=== PATIENT | male | born 1950 | race Caucasian/White ===

== ENCOUNTER → 2017-12-15 | Day surgery (SDC) | payer OTHER, BC ==
[2017-12-12 15:05] VITALS: Ht 177.8 cm; Wt 113.6 kg
[~2017-12-15] VITALS: Ht 177.8 cm; Wt 113.6 kg
[~2017-12-15] MED LIST: ASPCH81X PO; CHOL100010 PO; EFF75 PO; GLIP-197 PO; LEVO50TA6 PO; LIDOCAINE HCL 2% 2 ML VIAL (20MG/ML) ONE; LOSA50TA6 PO; METF1000 PO; PRLD25 PO; PROPOFOL IV EMULSION 10 MG/ML 20 ML VIAL ONE; SIMV10TA5 PO; SODIUM CHLORIDE 0.9% 500ML 500 ML IV ONE
--- NOTE | 2017-12-15 09:42 | Endo History and Physical ---
History & Physical Date of Service: December 15, 2017. Chief Complaint: history of polyps Referring Physician: Dr. Brown Gomez History of Present Illness h/o polyps; mother with colon cancer Past Surgical History Hx Cardiac Surgery: No Hx Internal Defibrillator: No Hx Pacemaker: No Hx Abdominal Surgery: No Hx of Implantable Prosthesis: No Hx Post-Op Nausea and Vomiting: No Hx Cancer Surgery: No Hx Thoracic Surgery: No Hx Orthopedic: No Hx Urinary Tract Surgery: No Family History Colon CA, Esophogeal CA Social History Smoking Status: Current Every Day Smoker Hx Substance Use: No Hx Alcohol Use: Yes (RARELY) Allergies Coded Allergies: Donepezil (Verified Allergy, Unknown, CAN'T REMEMBER, 12/12/17) Current Medications Reported Home Medications Medications Dose Route/Sig Max Daily Dose Days Date Category Vitamin D (Cholecalciferol) 1,000 Unit Tab 1 Tab PO QAM 12/12/17 Reported Effexor (Venlafaxine Hcl) 75 Mg Tab 75 Mg PO QAM 12/12/17 Reported Zocor (Simvastatin) 10 Mg Tab 10 Mg PO QPM 12/12/17 Reported Glucophage (Metformin Hcl) 1,000 Mg Tab 1,000 Mg PO BID 12/12/17 Reported Cozaar (Losartan Potassium) 50 Mg Tab 50 Mg PO QPM 12/12/17 Reported Levothyroxine Sodium 50 Mcg Tab 1 Tab PO QAM 12/12/17 Reported Glipizide Er (Glipizide) 5 Mg Tab 1 Tab PO QAM 12/12/17 Reported Bromocriptine Mesylate 2.5 Mg Tab 1 Tab PO QAM 12/12/17 Reported Aspirin Chewable (Aspirin) 81 Mg Chew 81 Mg PO DAILY 12/12/17 Reported Vital Signs Weight (Kilograms): 113.64 Height (Feet): 5 Height (Inches): 10 Date Time Temp Pulse Resp B/P (MAP) Pulse Ox O2 Delivery O2 Flow Rate FiO2 12/15/17 09:25 36.7 72 20 132/77 (95) 94 Room Air Physical Exam General Appearance: WD/WN, no apparent distress Assessment and Plan colonoscopy today
--- NOTE | 2017-12-15 10:33 | Anesthesiology Progress Note ---
Anesthesia Post Op Note Date & Time December 15, 2017 at 10:33 Vital Signs Pain Intensity: 0 Vital Signs Past 12 Hours Date Time Temp Pulse Resp B/P (MAP) Pulse Ox O2 Delivery O2 Flow Rate FiO2 12/15/17 10:18 79 18 129/78 (95) 94 Room Air 12/15/17 09:25 36.7 72 20 132/77 (95) 94 Room Air Notes Mental Status: alert / awake / arousable, participated in evaluation Pt Amnestic to Procedure: Yes Nausea / Vomiting: adequately controlled Pain: adequately controlled Airway Patency, RR, SpO2: stable & adequate BP & HR: stable & adequate Hydration State: stable & adequate Anesthetic Complications: no major complications apparent
[2017-12-15 10:48] VITALS: BP 142/80; PULSE 65; O2SAT 94
--- NOTE | 2017-12-15 10:48 | Discharge Instructions ---
Endoscopy Patient Instructions Date / Procedure(s) Performed December 15, 2017. Colonoscopy Allergy Information Coded Allergies: Donepezil (Verified Allergy, Unknown, CAN'T REMEMBER, 12/12/17) Discharge Date / Findings December 15, 2017. polyps Medication Instructions Stopped Medication(s): took ASA yesterday Restart Stopped Medication(s): Resume aspirin in 1 week as above Provider Instructions Activity Restrictions - No exercising or heavy lifting for 24 hours. - Do not drink alcohol the day of the procedure. - Do not drive a car or operate machinery until the day after the procedure. - Do not make any important decisions or sign important papers in 24 hours after the procedure. Following Day: - Return to full activity which may include returning to work/school. Diet Start your diet with liquids and light foods (jello, soup, juice, toast). Then eat your usual diet if not nauseated. Treatment For Common After Affects For mild abdominal pain, bloating, or excessive gas: - Rest - Eat lightly - Lie on right side Follow-Up Information Follow-up with Dr. Brown Gomez as scheduled Anesthesia Information What You Should Know You have had a procedure that required some medicine to reduce anxiety and discomfort. This treatment is called moderate sedation. After receiving the treatment, you may be sleepy, but you will be able to breathe on your own. The effects of the treatment may last for several hours. Follow these instructions along with Activity/Diet recommendations noted above: * Do NOT do anything where dizziness or clumsiness would be dangerous. * Rest quietly at home today, then you can be up and about tomorrow. * Have a responsible person stay with you the rest of today. * You may have had an I.V. today. If so, you may take the dressing off later today. Recommendations Call your doctor if: * Trouble breathing * Continuous vomiting for more than 24 hours * Temperature above 101 degrees * Severe abdominal pain or bloating * Pain not relieved by pain medicine ordered * There is increased drainage or redness from any incision * A large amount of rectal bleeding greater than 2-3 tablespoons. (If you had a polyp/s removed or have hemorrhoids, a small amount of blood - from the rectum is to be expected.) * You have any unanswered questions or concerns. IN THE EVENT OF A SERIOUS EMERGENCY, GO TO THE NEAREST EMERGENCY ROOM Your discharge instructions were prepared by provider Vi Mcrae. Patient Instructions Signature Page Primitivo Fajardo Patient (or Guardian) Signature/Date: I have read and understand the instructions given to me by my caregivers. Caregiver/RN/Doctor Signature/Date: The above-named patient and/or guardian has received patient instructions on this date. + Original Patient Signature Page (only) stays with chart. Please make copy for patient.
--- NOTE | 2017-12-15 15:46 | GI REPORT ---
Patient Name: Primitivo Fajardo Procedure Date: 12/15/2017 9:32 AM Date of : 1950 Admit Type: Outpatient Age: 67 Gender: Male Attending MD: Vi Mcrae DO Procedure: Colonoscopy Providers: Vi Mcrae DO Referring MD: Brown Gomez Indications: Surveillance: Personal history of adenomatous polyps on last colonoscopy > 5 years ago, Family history of colon cancer in mother in her 80's Medicines: Propofol per Anesthesia Complications: No immediate complications. Estimated blood loss: Minimal. Estimated Blood Loss: Estimated blood loss was minimal. Procedure: Pre-Anesthesia Assessment: - Prior to the procedure, a History and Physical was performed, and patient medications, allergies and sensitivities were reviewed. The patient's tolerance of previous anesthesia was reviewed. - The risks and benefits of the procedure and the sedation options and risks were discussed with the patient. All questions were answered and informed consent was obtained. - Patient identification and proposed procedure were verified prior to the procedure by the physician and the nurse. The procedure was verified in the pre-procedure area in the procedure room. - Mental Status Examination: alert and oriented. Airway Examination: normal oropharyngeal airway and neck mobility. Respiratory Examination: clear to auscultation. CV Examination: normal. Abdominal Examination: bowel sounds present, abdomen soft and non-tender, no masses or organomegaly noted. - ASA Grade Assessment: III - A patient with severe systemic disease. After I obtained informed consent, the scope was passed under direct vision. Throughout the procedure, the patient's blood pressure, pulse, and oxygen saturations were monitored continuously. The On-site loaner was introduced through the anus and advanced to the cecum, identified by appendiceal orifice and ileocecal valve. The colonoscopy was performed without difficulty. The patient tolerated the procedure well. The quality of the bowel preparation was good. Findings: The perianal and digital rectal examinations were normal. Pertinent negatives include normal sphincter tone and no palpable rectal lesions. A 3 mm polyp was found in the cecum. The polyp was sessile. The polyp was removed with a cold snare. Resection and retrieval were complete. Verification of patient identification for the specimen was done by the physician and nurse using the patient's name and date. Estimated blood loss was minimal. A 5 mm polyp was found in the transverse colon. The polyp was sessile. The polyp was removed with a cold snare. Resection and retrieval were complete. Verification of patient identification for the specimen was done by the physician and nurse using the patient's name and date. Estimated blood loss was minimal. A 8 mm polyp was found in the sigmoid colon. The polyp was sessile. The polyp was removed with a hot snare. Resection and retrieval were complete. Verification of patient identification for the specimen was done by the physician and nurse using the patient's name and date. Estimated blood loss was minimal. A few small-mouthed diverticula were found in the sigmoid colon. The retroflexed view of the distal rectum and anal verge was normal and showed no anal or rectal abnormalities. Impression: - One 3 mm polyp in the cecum, removed with a cold snare. Resected and retrieved. - One 5 mm polyp in the transverse colon, removed with a cold snare. Resected and retrieved. - One 8 mm polyp in the sigmoid colon, removed with a hot snare. Resected and retrieved. - Diverticulosis in the sigmoid colon. - The distal rectum and anal verge are normal on retroflexion view. Recommendation: - Await pathology results. - Repeat colonoscopy for surveillance based on pathology results. - No ibuprofen, naproxen, or other non-steroidal anti-inflammatory drugs for 5 days after polyp removal. - Return to primary care physician as previously scheduled. - Discharge patient to home. Vi Mcrae D.O. Vi Mcrae DO 12/15/2017 10:21:29 AM This report has been signed electronically. Note Initiated On: 12/15/2017 9:32 AM Number of Addenda: 0 I attest to the content of the Intraoperative Record and orders documented therein, exceptions below {[id number]}
== END | disposition home or self-care (01) ==
LOC: C.GI 09:04
PROVIDERS: ATTEND Internal Medicine
DX: Z12.11 Encounter for screening for malignant neoplasm of colon (principal); Z86.010 Personal history of colon polyps; K57.30 Diverticulosis of large intestine without perforation or abscess without bleeding; D12.0 Benign neoplasm of cecum; D12.3 Benign neoplasm of transverse colon; D12.5 Benign neoplasm of sigmoid colon; J44.9 Chronic obstructive pulmonary disease, unspecified; G47.33 Obstructive sleep apnea (adult) (pediatric); I10 Essential (primary) hypertension; E11.9 Type 2 diabetes mellitus without complications; Z80.0 Family history of malignant neoplasm of digestive organs; F17.200 Nicotine dependence, unspecified, uncomplicated; Z88.8 Allergy status to other drugs, medicaments and biological substances; Z79.82 Long term (current) use of aspirin; Z79.899 Other long term (current) drug therapy; Z79.84 Long term (current) use of oral hypoglycemic drugs

== ENCOUNTER 2022-12-19 18:06 | Observation (INO) ==
[2022-12-19] MEDS ORDERED: SODIUM CHLORIDE 0.9% 1000ML 1,000 ML IV ONE (18:27)
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
[2022-12-19 18:52] LABS: Basophils # (auto) 0.02 K/uL (0-0.2); Basophils % (auto) 0.3 %; Eosinophils # (auto) 0.19 K/uL (0-0.50); Eosinophils % (auto) 2.9 %; Hematocrit (blood only) 33.8 % (42.0-52.0); Hemoglobin 11.4 g/dl (14.0-18.0); Immature Granulocytes # (auto) 0.03 K/uL (0.01-0.20); Immature Granulocytes % (auto) 0.5 %; Lymphocytes # (auto) 0.76 K/uL (1.2-3.4); Lymphocytes % (auto) 11.4 %; Mean Corpuscular Hemoglobin 34.3 pg (25.0-34.0); Mean Corpuscular Hgb Conc 33.7 g/dL (32.0-36.0); Mean Corpuscular Volume 101.8 fL (80.0-100.0); Mean Platelet Volume 10.7 fL (9.4-12.4); Monocytes # (auto) 0.47 K/uL (0.11-0.59); Monocytes % (auto) 7.1 %; Neutrophils # (auto) 5.17 K/uL (1.40-6.50); Neutrophils % (auto) 77.8 %; Platelet Count 116 K/uL (130-400); RDW Standard Deviation 47.8 fL (36.4-46.3); Red Blood Count 3.32 M/uL (4.70-6.10); White Blood Count 6.64 K/ul (4.8-10.8)
[2022-12-19 19:08] LABS: Albumin Globulin Ratio 1.2 (0.9-2); Albumin Level 3.7 gm/dl (3.4-5.0); BUN Creatinine Ratio 16.3 (10-20); Bilirubin,Total 0.4 mg/dl (0.2-1.0); Calcium 8.4 mg/dl (8.6-10.3); Creatinine Clr Calc Pharmacy 41.7 ml/min; Est GFR (African American) 36.3 ml/min; Est GFR (Non-African American) 31.3 ml/min; Magnesium 1.6 mg/dl (1.7-2.4); Potassium 4.9 mmol/L (3.5-5.1); Total Protein 6.7 gm/dl (6.0-8.3)
[2022-12-19 19:14] LABS: Troponin I High Sensitivity 5.4 pg/ml (0-20)
--- NOTE | 2022-12-19 19:14 | XRay Report ---
XR chest 1V portable CLINICAL HISTORY: syncope TECHNIQUE: Single frontal radiograph of the chest was obtained. Comparison: Comparison is made to chest radiograph 02/13/2021 FINDINGS: No lines and tubes are seen. The cardiomediastinal silhouette is normal. The lungs are clear. No evid ence of pleural effusion or pneumothorax. IMPRESSION: No acute chest disease. ACT 112: Negative or not required by law. Electronically signed by: Graham Alvarez M.D. 12/19/2022 7:12 PM
[2022-12-19] MEDS ORDERED: MAGNESIUM SULFATE / D5W 1 GM/100 ML BAG IV ONE (19:17)
--- NOTE | 2022-12-19 20:53 | CT Scan Report ---
CT OF THE HEAD WITHOUT CONTRAST CLINICAL HISTORY: Syncope. COMPARISON STUDY: MRI of the brain April 01, 2008. CT DOSE: 547.75 mGy.cm TECHNIQUE: Helical axial images of the head were obtained without IV contrast. Automated exposure con trol was utilized for the study. A dose lowering technique was utilized adhering to the principles o f ALARA. FINDINGS: No acute intracranial hemorrhage, midline shift or mass effect is present. The ventricular system is unremarkable. The basal cisterns are patent. No extra-axial collections are present. There are no findings to suggest acute dural sinus thrombosis or acute territorial infarct. White matter hy podensity suggests small vessel disease. There is no acute calvarial fracture. Right maxillary sinus is opacified. IMPRESSION: No acute intracranial findings. ACT 112: Negative or not required by law. Electronically signed by: Burt Pineda M.D. 12/19/2022 8:50 PM
[2022-12-19] MEDS ORDERED: ASPIRIN CHEW 324 MG PO STA (20:55)
[2022-12-19 21:22] LABS: Troponin I High Sensitivity 10.8 pg/ml (0-20)
--- NOTE | 2022-12-19 21:36 | CT Scan Report ---
CT OF THE CHEST WITHOUT IV CONTRAST CLINICAL HISTORY: syncope, vomiting, EKG changes COMPARISON STUDY: Chest radiograph December 19, [address] October 12, 2018. CT DOSE: 733.55 mGy.cm TECHNIQUE: Axial images of the chest were obtained without IV contrast. Images were reviewed in the axial, sagittal, and coronal planes. IV contrast was not administered for this examination. Automat ed exposure control was utilized for the study. A dose lowering technique was utilized adhering to t he principles of ALARA. FINDINGS: No enlarged axillary, mediastinal or hilar lymph nodes are present. The size of the heart is normal. There is extensive coronary artery calcification. There is no pericardial effusion. There is no pneumothorax or pleural effusion. No consolidation is identified to suggest pneumonia. There is mild upper lobe predominant paraseptal emphysema. There are mild secretions within the airways. Mild bronchial wall thickening is noted. A 3 minimal subpleural lingular nodule on axial image 158 is unc hanged since prior CT. This is benign given stability. No acute fractures within the visualized bony thorax are noted. Visualized portions of the upper abdomen are unremarkable on this unenhanced exam. IMPRESSION: 1. No acute intrathoracic findings on unenhanced exam. 2. Mild emphysema, bronchial wall thickening and scattered secretions within the airways. No consolid ation. ACT 112: Negative or not required by law. Electronically signed by: Burt Pineda M.D. 12/19/2022 9:34 PM
[2022-12-19 21:55] LABS: Partial Thromboplastin Ratio 0.8; Partial Thromboplastin Time 23.1 Seconds (21.0-31.0)
[2022-12-19] MEDS ORDERED: PANTOprazole 80 MG in DEXTROSE 5% 100 ML IV STA (23:23)
[2022-12-19] MEDS ORDERED: PANTOprazole 80 MG in DEXTROSE 5% 100 ML IV ONE ×2 (23:23→23:31)
[2022-12-19] MEDS ORDERED: levETIRAcetam 1,000 MG in 0.9 % SODIUM CHLORIDE 100 ML IV STA (23:23)
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
[2022-12-19] MEDS ORDERED: PANTOprazole 40 MG in DEXTROSE 5% 100 ML IV SCH (23:45)
[2022-12-20 00:02] LABS: Hematocrit (blood only) 36.1 % (42.0-52.0); Hemoglobin 12.3 g/dl (14.0-18.0)
[2022-12-20] MEDS ORDERED: LORazepam 2 MG/1 ML VIAL IV PRN (01:25)
[2022-12-20] MEDS ORDERED: ACETAMINOPHEN 325 MG TAB PO PRN (01:25)
[2022-12-20] MEDS ORDERED: GLUCAGON FOR INJ 1 MG VIAL SQ PRN (01:25)
[2022-12-20] MEDS ORDERED: PROMETHAZINE HCL 12.5 MG in SODIUM CHLORIDE 0.9% 50 ML IV PRN (01:25)
[2022-12-20] MEDS ORDERED: GLUCOSE 40% GEL 15 GM TUBE PO PRN (01:25)
[2022-12-20] MEDS ORDERED: GLUCOSE 10 TAB/TUBE PO PRN (01:25)
[2022-12-20] MEDS ORDERED: BROMOCRIPTINE MESYLATE 2.5 MG TAB PO SCH ×2 (01:25→09:00)
[2022-12-20] MEDS ORDERED: CARBOHYDRATES FOR HYPOGLYCEMIA PO PRN (01:25)
[2022-12-20] MEDS ORDERED: DEXTROSE 50% 50 ML SYRINGE IV PRN (01:25)
[2022-12-20] MEDS ORDERED: oxyCODONE HCL IR 5 MG TAB (IMMEDIATE RELEASE) PO PRN (01:25)
[2022-12-20] MEDS ORDERED: GADOBUTROL 65ML VIAL IV ONE (01:36)
[2022-12-20] MEDS: INSULIN ASPART PER UNIT CHARGE SC SCH ×4 (02:44→17:10)
[2022-12-20] MEDS ORDERED: Nursing to Pharmacy Communication SCH (03:00)
--- NOTE | 2022-12-20 04:46 | Magnetic Resonance Report ---
Exam(s): MRA HEAD W/WO Contrast IV Amt: 11cc gadavist EXAM: MR Head Without and With Intravenous Contrast CLINICAL HISTORY: Reason for exam: sz. TECHNIQUE: Magnetic resonance images of the head/brain without and with intravenous contrast in multiple planes. CONTRAST: Patient received 11cc gadavist of IV contrast COMPARISON: Comparison is made to prior noncontrast head CT from December 19, 2022. FINDINGS: Brain: Moderate nonspecific white matter changes. The flow voids at the base of brain are intact. No mass. No hemorrhage. No acute infarct. No evidence of abnormal enhancement. Ventricles: Mild ventriculomegaly. Bones/joints: Unremarkable. Sinuses: Chronic right maxillary and ethmoid sinusitis. No acute sinusitis. Mastoid air cells: Unremarkable as visualized. No mastoid effusion. Orbits: Findings concerning for thyroid ophthalmopathy, which can be seen in the setting of Graves' disease. IMPRESSION: No evidence of acute intracranial pathology. Moderate nonspecific white matter changes. Electronically signed by: Demi Wilkinson MD 12/20/22 04:46 AM
[2022-12-20] MEDS ORDERED: LEVOTHYROXINE SODIUM 125 MCG TABLET PO SCH (06:30)
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
[2022-12-20] MEDS ORDERED: PANTOprazole 40 MG in SYRINGE 0 ML IV SCH (09:00)
[2022-12-20 09:49] LABS: Basophils # (auto) 0.02 K/uL (0-0.2); Basophils % (auto) 0.4 %; Eosinophils # (auto) 0.32 K/uL (0-0.50); Eosinophils % (auto) 6.9 %; Hematocrit (blood only) 33.7 % (42.0-52.0); Hemoglobin 11.3 g/dl (14.0-18.0); Immature Granulocytes # (auto) 0.02 K/uL (0.01-0.20); Immature Granulocytes % (auto) 0.4 %; Lymphocytes # (auto) 1.11 K/uL (1.2-3.4); Lymphocytes % (auto) 23.8 %; Mean Corpuscular Hemoglobin 34.5 pg (25.0-34.0); Mean Corpuscular Hgb Conc 33.5 g/dL (32.0-36.0); Mean Corpuscular Volume 102.7 fL (80.0-100.0); Mean Platelet Volume 10.6 fL (9.4-12.4); Monocytes # (auto) 0.57 K/uL (0.11-0.59); Monocytes % (auto) 12.2 %; Neutrophils # (auto) 2.62 K/uL (1.40-6.50); Neutrophils % (auto) 56.3 %; Platelet Count 113 K/uL (130-400); RDW Coefficient of Variation 13.2 % (11.5-14.5); RDW Standard Deviation 49.6 fL (36.4-46.3); Red Blood Count 3.28 M/uL (4.70-6.10); Reticulocyte % 1.5 % (0.5-2.0); Reticulocytes # 0.05 10^6/uL (0.02-0.10); White Blood Count 4.66 K/ul (4.8-10.8)
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
[2022-12-20 10:05] LABS: BUN Creatinine Ratio 18.3 (10-20); Calcium 8.5 mg/dl (8.6-10.3); Creatinine Clr Calc Pharmacy 46.7 ml/min; Est GFR (African American) 41.6 ml/min; Est GFR (Non-African American) 35.9 ml/min; Potassium 4.2 mmol/L (3.5-5.1)
[2022-12-20 10:24] LABS: Ferritin 60.7 ng/ml (8-388)
[2022-12-20 10:31] LABS: Appearance Urine Clear (Clear); Bacteria Urine Automated Negative (Negative); Bilirubin Urine Negative (Negative); Blood Urine Negative (Negative); Color Urine Yellow; Epithelial Cell Urine Auto 0-5 /lpf (0-5); Glucose Urine UA Negative (Negative); Ketones Urine Negative (Negative); Leukocyte Esterase Urine Negative (Negative); Nitrite Urine Negative (Negative); Protein Urine 3+ (Negative); RBC Urine Automated 0-4 /hpf (0-4); Specific Gravity Urine 1.022 (1.000-1.030); Urobilinogen Urine Negative (Negative)
[2022-12-20 10:31] LABS: Vitamin B12 669 pg/ml (180-914)
[2022-12-20 10:55] LABS: Magnesium 1.9 mg/dl (1.7-2.4)
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
[2022-12-20] MEDS ORDERED: NITROGLYCERIN SL 0.4 MG/TAB TAB ONE (12:46)
[2022-12-20] MEDS ORDERED: ATROPINE SULFATE 0.1 MG/ML 10ML SYR IV ONE (12:46)
[2022-12-20] MEDS ORDERED: DOBUTamine HCL 12.5 MG/ML 20 ML VIAL IV ONE (12:46)
[2022-12-20] MEDS ORDERED: METOPROLOL TARTRATE 1 MG/ML VIAL IV ONE (12:46)
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
--- NOTE | 2022-12-20 16:11 | Communication Note ---
Date of Service: December 20, 2022 Code 44 attestation: This 72-year-old male was admitted with syncopal episode and was appropriately evaluated and managed by ditch rider, neurologist and attending physician. He was discharged home in a stable medical condition by the attending physician. By CMS guidelines, a determination that the admission or continued stay is not medically necessary has been made by a member of the UR committee and a physician for this hospital stay, therefore a Code 44 will be completed and the Inpatient admission will be changed to outpatient. Dr Rowan Ortiz Member UR Committee
[2022-12-20] MEDS ORDERED: VITAMIN B COMPLEX TAB PO SCH (21:00)
--- NOTE | 2022-12-21 00:20 | Electrocardiogram Report ---
Test Reason : Blood Pressure : / mmHG Vent. Rate : 082 BPM Atrial Rate : 082 BPM P-R Int : 194 ms QRS Dur : 136 ms QT Int : 380 ms P-R-T Axes : 072 065 047 degrees QTc Int : 443 ms Normal sinus rhythm Right bundle branch block Abnormal ECG When compared with ECG of 29-JAN-2008 22:14, Right bundle branch block is now Present Confirmed by Edwin Wells ([id number]) on 12/21/2022 12:20:04 AM Referred By: REFERRED SELF Confirmed By:Edwin Wells
--- NOTE | 2022-12-21 00:22 | Electrocardiogram Report ---
Test Reason : Blood Pressure : / mmHG Vent. Rate : 075 BPM Atrial Rate : 075 BPM P-R Int : 200 ms QRS Dur : 140 ms QT Int : 378 ms P-R-T Axes : 064 -17 042 degrees QTc Int : 422 ms Normal sinus rhythm Right bundle branch block Abnormal ECG When compared with ECG of 19-DEC-2022 18:13, Questionable change in QRS axis Confirmed by Edwin Wells ([id number]) on 12/21/2022 12:22:20 AM Referred By: REFERRED SELF Confirmed By:Edwin Wells
--- NOTE | 2022-12-21 06:47 | Electrocardiogram Report ---
Test Reason : Blood Pressure : / mmHG Vent. Rate : 066 BPM Atrial Rate : 066 BPM P-R Int : 208 ms QRS Dur : 140 ms QT Int : 422 ms P-R-T Axes : 038 079 036 degrees QTc Int : 442 ms Sinus rhythm with 1st degree A-V block Right bundle branch block Abnormal ECG When compared with ECG of 19-DEC-2022 19:18, No significant change Confirmed by Edwin Wells ([id number]) on 12/21/2022 6:47:11 AM Referred By: REFERRED SELF Confirmed By:Edwin Wells
[2022-12-21] MEDS ORDERED: PANTOprazole 40 MG TAB PO SCH (09:00)
[2022-12-22] MEDS ORDERED: ROSUVASTATIN CALCIUM 5 MG TAB PO SCH (09:00)
== END 2022-12-20 17:30 | disposition home or self-care (01) ==
LOC: ED 18:06 → INTOOBSV 23:26 → 2W 23:26